=== PATIENT | female | born 1985 | race Caucasian/White ===

== ENCOUNTER 2020-11-02 08:32 | Day surgery (SDC) | payer OTHER ==
[~2020-11-02] VITALS: Ht 157.5 cm; Wt 63.5 kg
[~2020-11-02 08:32] MED LIST: ACETAMINOPHEN 650 MG SUPP PR ONE; LIDOCAINE 1% MDV 20ML VIAL SQ PRN; LR 1,000 ML IV ONE; NOXI1TAB PO; NS 1,000 ML IV SCH
[2020-11-02 09:14] LABS: HEMATOCRIT 44.8 % (36.0-47.0); HEMOGLOBIN 15.5 g/dl (12.0-15.5); MEAN CORPUSCULAR HEMOGLOBIN 32.7 pg (27.0-33.0); MEAN CORPUSCULAR HGB CONC 34.6 g/dl (32.0-36.5); MEAN CORPUSCULAR VOLUME 94.5 fl (80.0-96.0); PLATELET COUNT, AUTOMATED 170 10^3/uL (150-450); RED BLOOD COUNT 4.74 10^6/uL (4.00-5.40); WHITE BLOOD COUNT 6.4 10^3/uL (4.0-10.0)
[2020-11-02] MEDS ORDERED: LIDOCAINE 2% 100MG/5ML SDV (FOR ANES.) As Ordered ONE (09:25)
[2020-11-02] MEDS ORDERED: ROCURONIUM BROMIDE 50 MG/5 ML VIAL As Ordered ONE (09:25)
[2020-11-02] MEDS ORDERED: SUGAMMADEX SODIUM 500 MG/5 ML VIAL (BRIDION) As Ordered ONE (09:25)
[2020-11-02] MEDS ORDERED: KETOROLAC 60MG 2ML VIAL As Ordered ONE (09:25)
[2020-11-02] MEDS ORDERED: dexameTHASONE 4 MG/ML 1ML VIAL (J1100 PER 1MG) As Ordered ONE (09:25)
[2020-11-02] MEDS ORDERED: ONDANSETRON 4MG/2ML VIAL As Ordered ONE ×2 (09:25→12:04)
[2020-11-02] MEDS ORDERED: propofoL 200 MG/20 ML VIAL As Ordered ONE (09:25)
[2020-11-02] MEDS ORDERED: MIDAZOLAM INJ 2MG/2ML VIAL (J2250 PER 1MG) As Ordered ONE (09:26)
[2020-11-02] MEDS ORDERED: fentaNYL 100 MCG/2 ML INJECTION (J3010) As Ordered ONE (09:26)
[2020-11-02 09:38] LABS: BLOOD UREA NITROGEN 14 MG/DL (7-18); CALCIUM LEVEL 8.9 MG/DL (8.5-10.1); CARBON DIOXIDE LEVEL 29 MEQ/L (21-32); CHLORIDE LEVEL 111 MEQ/L (98-107); CREATININE FOR GFR 0.71 MG/DL (0.55-1.30); GLOMERULAR FILTRATION RATE > 60.0 (>60); GLUCOSE, FASTING 84 MG/DL (70-100); HCG, SERUM QUANTITATIVE < 1.0 MIU/ML; POTASSIUM SERUM 4.1 MEQ/L (3.5-5.1); SODIUM LEVEL 143 MEQ/L (136-145)
[2020-11-02] MEDS ORDERED: SCOPOLAMINE 1MG TRANSDERMAL PATCH TOP ONE (09:55)
[2020-11-02] MEDS ORDERED: ACETAMINOPHEN 650 MG SUPP As Ordered ONE (10:26)
[2020-11-02] MEDS: BUPIVACAINE HCL 0.5% 10ML VIAL As Ordered ONE ×2 (11:00→11:15)
[2020-11-02] MEDS ORDERED: HYDROmorphone HCL 2 MG/ML 1ML VIAL (J1170) As Ordered ONE (11:37)
[2020-11-02] MEDS ORDERED: LR 1,000 ML IV SCH (12:10)
[2020-11-02] MEDS ORDERED: ONDANSETRON 4MG/2ML VIAL IV PRN (12:10)
[2020-11-02] MEDS ORDERED: fentaNYL 100 MCG/2 ML INJECTION (J3010) IV PRN (12:10)
[2020-11-02] MEDS ORDERED: oxyCODONE 5MG TAB PO PRN (12:10)
[2020-11-02] MEDS ORDERED: KETOROLAC 30 MG/ML 1ML VIAL IV PRN (12:40)
[2020-11-02 14:25] VITALS: BP 116/63
--- NOTE | 2020-11-03 08:37 | RO ---
OPERATIVE NOTE DATE OF OPERATION: 11/02/2020 PREOPERATIVE DIAGNOSIS: Satisfied parity. POSTOPERATIVE DIAGNOSIS: Satisfied parity and incisional hernia. PROCEDURE PROPOSED: Operative laparoscopy, bilateral salpingectomy, hysteroscopy, D&C, removal of IUCD. OPERATION PERFORMED: Operative laparoscopy, bilateral salpingectomy, lysis of adhesions, removal of ICUD. SURGEON: Dylan Ervin MD BICYCLE RENTAL CLERK: Dr. Marcial for extraction, retraction and visualization without which the procedure could not be completed. ANESTHESIA: General plus local anesthetic for intraperitoneal procedures. ESTIMATED BLOOD LOSS: Less than 20 mL. DESCRIPTION OF PROCEDURE: After adequate time out, prep and draped in lithotomy position, Caal catheter in bladder draining clear urine. Acetaminophen suppository 1300 mg per rectum, weighted speculum in the vagina, single tooth tenaculum on the anterior lip of the cervix. Large multiparous cervix was noted. Protruding out of the external and internal os were a couple of strings. A uterine elevator was placed in endocervical canal. Reprepping and draping, small subumbilical incision was made. Veress needle was applied, 3.8 liters of CO2 to flow rate of 14 to pressure of 15, 3 mm operative scope was placed. Panoramic review: Right upper quadrant was normal. Gallbladder was normal. Right lower quadrant was normal. Round ligament on right side was extensively stretched. Small little hernia area in the inguinal canal. There were a lot of adhesions to the anterior abdominal wall in the midline and when you moved it from one side to the other you could see a fascial defect up to the skin. Left round ligament was normal. Cul-de-sac was clear. Anterior aspect of the bladder was clear. Right uterosacral was normal, left uterosacral seemed to very tenuous, no evidence of endometriosis or adhesions. A 3 mm port was placed on the right side, 5 mm port was placed on the left side. Elevating the uterus the right tube was elevated and using the LigaSure the right tube was removed, brought out through the 5 mm port and sent to pathology under separate cover. With the omentum adherent to the anterior abdominal wall it was taken down with the LigaSure and dropped back into the abdomen. On the left side the tube was visualized to the fimbriated end, with LigaSure the left tube was removed and taken out through the 5 mm port. Good hemostasis was secured. Sponge and instrument counts correct. Under direct vision we deflated to 4 mm of pressure, no evidence of bleeding. The left port was removed. The right port was removed. The mainstem port was removed. Subcuticular stitches were placed in all three ports, Marcaine 0.5% to the skin areas and skin tapes were performed. Going down below the uterine elevator was removed. Caal catheter was removed. The IUCD was visualized directly and was removed and sent to pathology under separate cover. Uterus was replaced in anatomical position. With instrument and pad count correct the patient was taken to recovery in good condition. cc: Spencer [facility]
== END 2020-11-02 14:45 | disposition home or self-care (01) ==
LOC: M SDC 08:32
PROVIDERS: ATTEND Obstetrics & Gynecology
DX: Z30.2 Encounter for sterilization (principal); K43.2 Incisional hernia without obstruction or gangrene; T88.59XD Other complications of anesthesia, subsequent encounter; Y76.2 Prosthetic and other implants, materials and accessory obstetric and gynecological devices associated with adverse incidents; R11.2 Nausea with vomiting, unspecified; Z88.1 Allergy status to other antibiotic agents; Z88.2 Allergy status to sulfonamides; Z79.899 Other long term (current) drug therapy
CPT/HCPCS: 36415; 58562; 58661; 80048; 84702; 85027; 88302; J1100; J1170; J1885; J2250; J2405; J3010

== ENCOUNTER → 2023-05-02 | Outpatient (CLI) | payer OTHER ==
[~2023-05-02] MED LIST changes: -ACETAMINOPHEN 650 MG SUPP PR ONE; -LIDOCAINE 1% MDV 20ML VIAL SQ PRN; -LR 1,000 ML IV ONE; -NS 1,000 ML IV SCH
== END ==
LOC: M WHC 08:30
PROVIDERS: ATTEND Family Medicine
DX: Z12.31 Encounter for screening mammogram for malignant neoplasm of breast (principal)
CPT/HCPCS: 77066; G0279